=== PATIENT | female | born 1985 | race African-American/Black ===

== ENCOUNTER 2020-05-14 13:18 | Outpatient (CLI) | payer BC | END 2020-05-14 13:19 | disposition home or self-care (01) | LOC: BICULT 13:18 | PROVIDERS: ATTEND Nurse Practitioner Family | DX: R79.1 Abnormal coagulation profile (principal) ==

== ENCOUNTER 2021-01-13 08:50 | Outpatient (CLI) | payer BC | END 2021-01-13 08:51 | disposition home or self-care (01) | LOC: BICMAMMO 08:50 | PROVIDERS: ATTEND Family Medicine | DX: N63.41 Unspecified lump in right breast, subareolar (principal) | CPT/HCPCS: 77066; G0279 ==

== ENCOUNTER 2022-11-22 14:43 | Outpatient (CLI) | payer OTHER | END 2022-11-22 14:44 | disposition home or self-care (01) | LOC: BICMAMMO 14:43 | PROVIDERS: ATTEND Student in an Organized Health Care Education/Training Program | DX: C50.011 Malignant neoplasm of nipple and areola, right female breast (principal) | CPT/HCPCS: 77066; G0279 ==

== ENCOUNTER 2024-01-15 13:24 | Outpatient (CLI) | payer BC, OTHER | END 2024-01-15 13:25 | disposition home or self-care (01) | LOC: BICMAMMO 13:24 | PROVIDERS: ATTEND Specialist | DX: Z08 Encounter for follow-up examination after completed treatment for malignant neoplasm (principal); Z85.3 Personal history of malignant neoplasm of breast | CPT/HCPCS: 77066; G0279 ==